=== PATIENT | female | born 1945 | race Caucasian/White ===

== ENCOUNTER → 2017-08-03 | Outpatient (CLI) | payer MEDICARE, OTHER | END | disposition home or self-care (01) | LOC: KCIC MAMMO 10:16 | DX: Z12.31 Encounter for screening mammogram for malignant neoplasm of breast (principal) | CPT/HCPCS: 77063; 77067 ==

== ENCOUNTER → 2018-08-13 | Outpatient (CLI) | payer MEDICARE, OTHER ==
--- NOTE | 2018-08-13 13:26 | KCIC ---
Bilateral digital screening mammograms with 3-D tomosynthesis: Reason for examination: Routine screening. Comparison is made to previous studies dated 08/03/2017 and 08/21/2014. Bilateral mammograms in CC and oblique projections were obtained with 2-D imaging and 3-D tomosynthesis imaging on a Siemens Inspiration unit and reviewed on the workstation. Interpretation was made with the benefit of CAD. The skin and nipples show no abnormalities. No abnormal axillary lymph nodes are seen. The breast parenchyma shows scattered fatty and fibroglandular density. (Breast density: Category B.) There are no dominant masses, suspicious calcifications or architectural distortion. Impression: No evidence of malignancy. Recommend routine screening. BI-RAD Category 1: Negative. "Our facility is accredited by the [employer] Mammography [employer]." This patient's information has been entered into a reminder system for the patient to be notified with the results of her examination and a target date for the next mammogram. Electronically signed by: Amie Martin MD (08/13/2018 1:23 PM) [id number]
== END | disposition home or self-care (01) ==
LOC: KCIC MAMMO 10:56
PROVIDERS: ATTEND Internal Medicine
DX: Z12.31 Encounter for screening mammogram for malignant neoplasm of breast (principal)
CPT/HCPCS: 77063; 77067

== ENCOUNTER → 2019-11-11 | Outpatient (CLI) | payer MEDICARE, OTHER ==
--- NOTE | 2019-11-11 16:42 | KCIC ---
Bilateral digital screening mammograms with 3-D tomosynthesis: Reason for examination: Routine screening. Comparison is made to previous studies dated back to 08/06/2013. Bilateral mammograms in CC and oblique projections were obtained with 2-D imaging and 3-D tomosynthesis imaging on a Siemens Inspiration unit and reviewed on the workstation. Interpretation was made with the benefit of CAD. The skin and nipples show no abnormalities. No abnormal axillary lymph nodes are seen. The breast parenchyma shows scattered fatty and fibroglandular density. (Breast density: Category B.) There are no dominant masses, suspicious calcifications or architectural distortion. Impression: No evidence of malignancy. Recommend routine screening. BI-RAD Category 1: Negative. "Our facility is accredited by the [employer] Mammography [employer]." This patient's information has been entered into a reminder system for the patient to be notified with the results of her examination and a target date for the next mammogram. Electronically signed by: Amie Martin MD (11/11/2019 4:39 PM) [email or web address]
== END | disposition home or self-care (01) ==
LOC: KCIC MAMMO 10:19
PROVIDERS: ATTEND Internal Medicine
DX: Z12.31 Encounter for screening mammogram for malignant neoplasm of breast (principal)
CPT/HCPCS: 77063; 77067

== ENCOUNTER → 2019-12-23 | Outpatient (CLI) | payer MEDICARE, OTHER ==
--- NOTE | 2019-12-23 13:26 | KCIC ---
EXAM: DUAL ENERGY X-RAY ABSORPTIOMETRY (DEXA). HISTORY: Postmenopausal screening. FINDINGS: The lowest measured T-score is -1.8 in the left hip, based on a bone mineral density of 0.717 g/cm^2. Refer to the worksheets for full detail. No comparison examinations are available. IMPRESSION: Low bone mass. Bone mineral density yields a T-score between -1.0 and -2.5. Fracture risk is increased. METHODOLOGY: Dual energy x-ray absorptiometry was performed to measure bone mineral density. The following analysis is based on the 2019 Official Positions of the International Society for Clinical Densitometry: Measurements of the hips and the average of L1-L4 are preferred. When the spine and/or hip cannot be feasibly measured or interpreted, or in the setting of hyperparathyroidism, distal radial bone mineral density may be measured. The lumbar spine T-score is based on the average bone mineral density of L1-L4. In the setting of artifact or anatomic abnormality, some lumbar levels may be excluded, and the remaining levels used for calculation. A single lumbar level is not used for diagnosis, and if only a single level is available for assessment, another anatomic site will be used to assign a diagnosis. The hip T-score is based on the bone mineral density measurement of the femoral neck or total proximal femur of either side, whichever is lowest. Bilateral mean values are not used for diagnosis. The forearm T-score is derived from 33% of the distal radius of the nondominant forearm. Electronically signed by: Cari Manuel MD (12/23/2019 1:23 PM) [email or web address]
== END ==
LOC: KCIC DEXA 09:47
PROVIDERS: ATTEND Internal Medicine
DX: Z78.0 Asymptomatic menopausal state (principal)
CPT/HCPCS: 77080

== ENCOUNTER → 2020-05-14 | Outpatient (CLI) | payer MEDICARE, OTHER ==
--- NOTE | 2020-05-14 11:51 | KCIC ---
Examination: CT HEAD/BRAIN WO History: New onset headaches. Lt temporal headaches 3 weeks. / Comparison/Correlation: None Findings: Axial images of the head were obtained without contrast. Ventricles are normal size. No int racranial hemorrhage, mass effect, or midline shift. Pineal gland calcification is noted. Orbits are mostly visualized and unremarkable. No suspicious bony process. Impression: No suspicious process. Electronically signed by: Abel Sanchez MD (05/14/2020 11:49 AM) [id number]
== END ==
LOC: KCIC 11:16
PROVIDERS: ATTEND Internal Medicine
DX: R51.9 Headache, unspecified (principal)
CPT/HCPCS: 70450

== ENCOUNTER → 2020-11-24 | Outpatient (CLI) | payer MEDICARE, OTHER ==
--- NOTE | 2020-11-24 11:28 | KCIC ---
Bilateral digital screening mammograms with 3-D tomosynthesis: Reason for examination: Routine screening. Comparison is made to previous studies dated back to 08/06/2013. Bilateral mammograms in CC and oblique projections were obtained with 2-D imaging and 3-D tomosynthes is imaging on a Siemens Inspiration unit and reviewed on the workstation. Interpretation was made wit h the benefit of CAD. The skin and nipples show no abnormalities. No abnormal axillary lymph nodes are seen. The breast par enchyma shows scattered fatty and fibroglandular density. (Breast density: Category B.) There continu es to be some mildly asymmetry parenchyma in the upper outer quadrant of the right breast anteriorly but this is stable. There are no new dominant masses, suspicious calcifications or architectural dist ortion. Impression: No evidence of malignancy. Recommend routine screening. BI-RAD Category 2: Benign. "Our facility is accredited by the [employer] Mammography Program." This patient's information has been entered into a reminder system for the patient to be notified wit h the results of her examination and a target date for the next mammogram. Electronically signed by: Amie Martin MD (11/24/2020 11:26 AM) [email or web address]
== END ==
LOC: KCIC MAMMO 09:56
PROVIDERS: ATTEND Internal Medicine
DX: Z12.31 Encounter for screening mammogram for malignant neoplasm of breast (principal)
CPT/HCPCS: 77063; 77067

== ENCOUNTER → 2021-02-25 | Outpatient (CLI) | payer MEDICARE, OTHER ==
--- NOTE | 2021-02-25 13:26 | RESP ---
DATE OF SERVICE: 02/25/2021 PULMONARY FUNCTION TESTS ATTENDING PHYSICIAN: Grace Cartagena MD The patient's FVC was 1.98, which is 71% predicted; FEV1 1.36, which is 66% predicted. The FEV1/FVC ratio was reduced. Lung volumes showed a total lung capacity of 223% predicted and a residual volume of 437% predicted. Diffusion capacity was normal. There was 13% improvement in FVC and 15% improvement in FEV1 postbronchodilator. IMPRESSION: 1. Moderate obstructive airway disease. 2. Good response to bronchodilators. 3. Lung volumes consistent with air trapping and hyperinflation. 4. Normal diffusion capacity. NIKKI DR: Alysia TID: [id number] CC: GRACE CARTAGENA MD
== END ==
LOC: PF 07:49
PROVIDERS: ATTEND Internal Medicine
DX: J98.8 Other specified respiratory disorders (principal)
CPT/HCPCS: 94060; 94640; 94726; 94729; 94664